=== PATIENT | female | born 1990 | race Caucasian/White ===

== ENCOUNTER → 2020-02-16 16:14 | Outpatient (CLI) | payer OTHER, SELFPAY ==
[2020-02-02 09:54] VITALS: BMI 33.5
--- NOTE | 2020-02-16 16:14 | US_ITS ---
STUDY: ULTRASOUND OF THE FEMALE PELVIS - COMPLETE REASON FOR EXAM: Female, 30 years old. Infertility LMP: 01/19/2020. TECHNIQUE: Transabdominal and Transvaginal TECHNICAL QUALITY: Adequate. COMPARISON: None. FINDINGS: The uterus is anteverted and is in a midline position. The uterus measures 8.6 cm x 4.9 cm x 3.7 cm. There is a Nabothian cyst of the cervix. The endometrium measures 8.3 mm in thickness, and is hyperechoic. There is no demonstrated endometrial mass. There is no demonstrated myometrial mass. I.U.D. - The patient does not have an I.U.D. The right ovary is visualized. The right ovary measures 5.9 cm x 5.5 cm x 5.8 cm. There is a 5.4 cm x 5 cm x 5.5 cm cyst within it. There is no visualized right adnexal mass or complex lesion. There is normal arterial and normal venous vascularity. The left ovary is visualized. The left ovary measures 3.3 cm x 2.2 cm x 1.7 cm. There is no left ovarian cyst or ovarian mass. There is no visualized left adnexal mass or complex lesion. There is normal arterial and normal venous vascularity. There is no fluid in the cul-de-sac. The pre void volume of the bladder was 445 ml. Polycystic ovary disease: No. US/Transvaginal Non- IMPRESSION: 5.4 cm x 5 cm x 5.5 cm right ovarian cyst. Electronically Signed: Kenneth Bar, at 13:16 EDT , Service support ,
--- NOTE | 2020-02-16 16:14 | US_ITS ---
STUDY: ULTRASOUND OF THE FEMALE PELVIS - COMPLETE REASON FOR EXAM: Female, 30 years old. Infertility LMP: 01/19/2020. TECHNIQUE: Transabdominal and Transvaginal TECHNICAL QUALITY: Adequate. COMPARISON: None. FINDINGS: The uterus is anteverted and is in a midline position. The uterus measures 8.6 cm x 4.9 cm x 3.7 cm. There is a Nabothian cyst of the cervix. The endometrium measures 8.3 mm in thickness, and is hyperechoic. There is no demonstrated endometrial mass. There is no demonstrated myometrial mass. I.U.D. - The patient does not have an I.U.D. The right ovary is visualized. The right ovary measures 5.9 cm x 5.5 cm x 5.8 cm. There is a 5.4 cm x 5 cm x 5.5 cm cyst within it. There is no visualized right adnexal mass or complex lesion. There is normal arterial and normal venous vascularity. The left ovary is visualized. The left ovary measures 3.3 cm x 2.2 cm x 1.7 cm. There is no left ovarian cyst or ovarian mass. There is no visualized left adnexal mass or complex lesion. There is normal arterial and normal venous vascularity. There is no fluid in the cul-de-sac. The pre void volume of the bladder was 445 ml. Polycystic ovary disease: No. US/Pelvic (Non ) IMPRESSION: 5.4 cm x 5 cm x 5.5 cm right ovarian cyst. Electronically Signed: Kenneth Bar, at 13:16 EDT , Service support ,
== END ==
PROVIDERS: Referring Provider Obstetrics & Gynecology; Visit Provider Obstetrics & Gynecology
DX: N97.9 Female infertility, unspecified (principal)
CPT/HCPCS: 76830; 76856

== ENCOUNTER → 2020-02-21 09:35 | Outpatient (CLI) | payer OTHER, SELFPAY ==
[2020-02-02 09:54] VITALS: BMI 33.5
[2020-02-21 10:51] LABS: Estradiol 21.4 pg/mL; Follicle Stimulating Hormone 5.7 mIU/mL; Prolactin 16.8 ng/mL; Thyroid Stim Hormone (TSH) 1.27 uIU/mL (0.358-3.74)
[2020-02-25 09:28] LABS: HIV - WCH Non-Reactive (Nonreactive); Rubella IgG 110.9 IU/mL
[2020-02-25 16:08] LABS: Testosterone, % Free 2.67 % (0.50-2.80); Testosterone, Free 1.07 ng/dL (0.10-0.85); Testosterone, Total 40 ng/dL (8-48)
[2020-02-25 16:33] LABS: V-Zoster IgG (Immunity) < 135 index (Immune >165)
[2020-02-26 01:34] LABS: Rapid Plasmin Reagin (RPR) NONREACTIVE (NONREACTIVE)
== END ==
PROVIDERS: Referring Provider Obstetrics & Gynecology; Visit Provider Obstetrics & Gynecology
DX: N97.9 Female infertility, unspecified (principal); Z13.29 Encounter for screening for other suspected endocrine disorder
CPT/HCPCS: 36415; 82627; 82670; 83001; 84146; 84402; 84403; 84443; 86592; 86703; 86762; 86787; 82626

== ENCOUNTER → 2020-03-15 15:34 | Outpatient (CLI) | payer OTHER, SELFPAY ==
[2020-02-02 09:54] VITALS: BMI 33.5
--- NOTE | 2020-03-15 15:35 | US_ITS ---
STUDY: ULTRASOUND OF THE FEMALE PELVIS - COMPLETE REASON FOR EXAM: Female, 30 years old. F/U RTO CYST LMP: 12/20/2019 TECHNIQUE: Transabdominal and Transvaginal TECHNICAL QUALITY: Adequate. COMPARISON: 02/16/2020 FINDINGS: The uterus is anteverted and is in a midline position. The uterus measures 9.4 x 5.1 x 3.0 cm. Normal uterine cervix. The endometrium measures 4 mm in thickness, and is hyperechoic. There is no demonstrated endometrial mass. Anterior myometrial fibroid measuring 7 x 6 x 5 mm. I.U.D. - The patient does not have an I.U.D. The right ovary is visualized. The right ovary measures 7.6 x 6.3 x 4.9 cm. A stable simple right ovary cyst is present measuring 6.2 x 4.3 x 5.9 cm. An adjacent complex septated cyst is now visible measuring 3.0 x 2.6 x 2.2 cm. There is no visualized right adnexal mass or complex lesion. There is normal arterial and normal venous vascularity. The left ovary is visualized. The left ovary measures 4.2 x 2.8 x 1.7 cm. There is no left ovarian cyst or ovarian mass. There is no visualized left adnexal mass or complex lesion. There is normal arterial and normal venous vascularity. There is no fluid in the cul-de-sac. The pre void volume of the bladder was 538.62 ml. Polycystic ovary disease: No. US/Pelvic (Non ) IMPRESSION: A stable simple right ovary cyst is present measuring 6.2 x 4.3 x 5.9 cm. An adjacent complex septated right ovary cyst is now visible measuring 3.0 x 2.6 x 2.2 cm. Anterior myometrial fibroid measuring 7 x 6 x 5 mm. Electronically Signed: Travis De Leon MD at 20:59 EDT Tel , Service support ,
--- NOTE | 2020-03-15 15:35 | US_ITS ---
STUDY: ULTRASOUND OF THE FEMALE PELVIS - COMPLETE REASON FOR EXAM: Female, 30 years old. F/U RTO CYST LMP: 12/20/2019 TECHNIQUE: Transabdominal and Transvaginal TECHNICAL QUALITY: Adequate. COMPARISON: 02/16/2020 FINDINGS: The uterus is anteverted and is in a midline position. The uterus measures 9.4 x 5.1 x 3.0 cm. Normal uterine cervix. The endometrium measures 4 mm in thickness, and is hyperechoic. There is no demonstrated endometrial mass. Anterior myometrial fibroid measuring 7 x 6 x 5 mm. I.U.D. - The patient does not have an I.U.D. The right ovary is visualized. The right ovary measures 7.6 x 6.3 x 4.9 cm. A stable simple right ovary cyst is present measuring 6.2 x 4.3 x 5.9 cm. An adjacent complex septated cyst is now visible measuring 3.0 x 2.6 x 2.2 cm. There is no visualized right adnexal mass or complex lesion. There is normal arterial and normal venous vascularity. The left ovary is visualized. The left ovary measures 4.2 x 2.8 x 1.7 cm. There is no left ovarian cyst or ovarian mass. There is no visualized left adnexal mass or complex lesion. There is normal arterial and normal venous vascularity. There is no fluid in the cul-de-sac. The pre void volume of the bladder was 538.62 ml. Polycystic ovary disease: No. US/Transvaginal Non- IMPRESSION: A stable simple right ovary cyst is present measuring 6.2 x 4.3 x 5.9 cm. An adjacent complex septated right ovary cyst is now visible measuring 3.0 x 2.6 x 2.2 cm. Anterior myometrial fibroid measuring 7 x 6 x 5 mm. Electronically Signed: Travis De Leon MD at 20:59 EDT Tel , Service support ,
== END ==
PROVIDERS: Referring Provider Obstetrics & Gynecology; Visit Provider Obstetrics & Gynecology
DX: N83.209 Unspecified ovarian cyst, unspecified side (principal)
CPT/HCPCS: 76830; 76856

== ENCOUNTER → 2020-03-17 13:02 | Outpatient (CLI) | payer OTHER, SELFPAY ==
[2020-02-02 09:54] VITALS: BMI 33.5
[2020-03-17 14:13] LABS: NATERA MAILED SPECIMEN
== END ==
PROVIDERS: Referring Provider Obstetrics & Gynecology; Visit Provider Obstetrics & Gynecology
DX: Z86.010 Personal history of colon polyps (principal)
CPT/HCPCS: 36415

== ENCOUNTER 2020-04-13 05:59 | Day surgery (SDC) | payer OTHER, SELFPAY ==
[2020-03-17 13:51] VITALS: BMI 33.2
[2020-04-12 15:00] LABS: Hematocrit 39.4 % (37-47); Hemoglobin 13.7 g/dL (12.0-15.0); Mean Corp Hgb Conc 34.8 g/dL (32-36); Mean Corpuscular Volume 83.5 fL (81-99); Platelet Count 360 K/mm3 (150-450); RBC Distribution Width SD 36.5 fl (35.1-43.9); Red Blood Count 4.72 M/mm3 (4.2-5.4); White Blood Count 9.5 K/mm3 (4.4-11.0)
--- NOTE | 2020-04-13 | OV_PTH ---
PATIENT: ADELIA REGALADO LOC: [facility] [place] U#:[id number] AGE/SX: 30/F ROOM: RE04/13/[address]: Dr. Riya Stratton MD : 1990 BED: DIS: 04/13/2020 SPEC #: [id number] RECD: 04/13/20 12:02 STATUS: SHERRY DARRION #: [id number] ANNIE: 04/13/20 00:[address]: Riya Stratton DEPT: SURGICAL PATHOLOGY RECD BY: Anish Cornejo ENTERED: 04/13/20 12:02 SP TYPE: OVARY OTHR DR: No Primary Care Phys Tissues: OVARIAN CYST Procedures: Surgery Specimen Level IV HEADER OPERATION: Laparoscopic ovarian cystectomy, chromotubation PRE-OP DIAGNOSIS: Right ovary cyst TISSUE SUBMITTED: Right ovarian cyst wall MICROSCOPIC DIAGNOSIS Right ovarian cyst wall, cystectomy: Consistent with simple serous cystadenofibroma. SJ:cyndi 04/14/20 MICROSCOPIC DESCRIPTION Slides are reviewed. GROSS DESCRIPTION Received in fixative is one container labeled with the patient's name and designated right ovarian cyst wall. The specimen consists of a glistening fragment of pink-white soft tissue measuring 5 x 1.5 x 0.5 cm. The specimen is sectioned and totally submitted in two cassettes. / AM:cyndi 04/13/20 TC:1 CPT: 87647
[2020-04-13 06:22] VITALS: BP 135/85; PULSE 103; RESP 16; TEMP 37.5; O2SAT 95; BMI 32.9
[2020-04-13 06:22] LABS: Internal QC Validated? YES +Cl - CLEAR BKGD; Pregnancy, Urine Negative Negative
[2020-04-13] MEDS: Lactated Ringers 1,000 ML 100 ML IV ×2 (06:27→09:08)
--- NOTE | 2020-04-13 07:21 | HP.PCM_ITS ---
- Problem List (1) Ovarian cyst Status: Acute History and Physical Date of Admission: 04/13/20 Intake Vital Signs 03/17/20 Height 5 ft 4 in 03/17/20 Weight: 193 lb 8 oz 03/17/20 BP 144/84 H Intake Visit Reasons: infertility work up Template Storage Clerk Required: No Is patient in pain?: No Allergies No Known Allergies Allergy (Verified 03/17/20 13:52) Medications NK 02/02/20 [History Confirmed 03/17/20] Post menopausal: No Patient : No : No PFSH Medical History History of colon polyps (Resolved) Surgical History (Updated 02/02/20 @ 09:56 by Diya Aponte) S/P colonoscopy with polypectomy (Acute) Family History Aunt Colon cancer 4 aunts and couple cousins Social History (Updated 03/17/20 @ 14:[address] Riya Stratton MD) Smoking Status: Never smoker alcohol intake: never substance use type: does not use caffeine: No what type of physical activity do you participate in: none seatbelt use: always do you feel safe at home: Yes additional social history: [employer]g-Biaihcxjdfd/EMT Patient is stay at home mom HPI infertility work up: Details: ADELIA REGALADO is a 30 year old who presents for results follow-up. She reports continues to have regular cycles. Did not ovulate the first month after initial exam, but had positive OPKs the following month. Ovarian cyst identified on ultrasound. Patient denies significant pain and pelvic pressure. Does report one instance a couple of months ago in which she had severe pain on her right side that was so severe that she almost went to the ER. Her has not had a semenalysis - would be more agreeable if could have done at home. Pregancy History 1 Elective abortions Hx Para 1 Spontaneous abortions Hx # Term Pregnancies Ectopic pregnancies Hx # Pregnancies Multiple births # of living children Past Pregnancies Del. Date Name GA/Weeks Outcome Route Bth Weight Gen Labor Lgth Anesthesia Del Locatn Provider FOB 09/29/12 Maribell 40 live - full term 7lbs 8oz Female epidural [facility] Dr. Florencio Grace Delivery Date: 09/29/12 No issues during , mom's HR kept dropping after delivery and blood pressure was elevated Diya Aponte Const Constitutional: Denies chills, fatigue or fever(s) : Denies blood in urine, pelvic pain, urinary urgency, vaginal discharge, vaginal dryness, vaginal odor or vaginal itching Exam Const General: cooperative, healthy appearing, comfortable, well developed, well groomed Neck Neck: normal visual inspection, full ROM Resp Effort & Inspection: normal respiratory effort, able to speak in complete sentences, symmetric chest movement Cardio Rate: regular rate Skin General: no rashes or lesions noted, elasticity normal, turgor normal Lesions: no lesions Rashes: no rashes Neuro General: alert, awake, oriented x3 Cranial Nerves: CN's II-XI intact bilaterally, PERRL, EOM intact bilaterally Cognition: normal cognition Speech: speech normal Gait: normal gait Extrem General: normal to inspection, full ROM, no pedal edema Psych Appearance: grossly normal Mental Status: mental status grossly normal Mood: congruent mood Affect: normal affect Speech and Movement: speech and movement normal Attitude: cooperative Thought Process: normal Thought Content: normal Assessment & Plan 1. Cyst of right ovary N83.201 Plan Ultrasound 03/15 shows: The uterus is anteverted and is in a midline position. The uterus measures 9.4 x 5.1 x 3.0 cm. Normal uterine cervix. The endometrium measures 4 mm in thickness, and is hyperechoic. There is no demonstrated endometrial mass. Anterior myometrial fibroid measuring 7 x 6 x 5 mm. I.U.D. - The patient does not have an I.U.D. The right ovary is visualized. The right ovary measures 7.6 x 6.3 x 4.9 cm. A stable simple right ovary cyst is present measuring 6.2 x 4.3 x 5.9 cm. An adjacent complex septated cyst is now visible measuring 3.0 x 2.6 x 2.2 cm. There is no visualized right adnexal mass or complex lesion. There is normal arterial and normal venous vascularity. The left ovary is visualized. The left ovary measures 4.2 x 2.8 x 1.7 cm. There is no left ovarian cyst or ovarian mass. There is no visualized left adnexal mass or complex lesion. There is normal arterial and normal venous vascularity. Right ovarian cyst also present on imaging 1 month prior to this imaging, but has become slightly larger on most recent scan. Discussed that cyst is simple, but that cysts >5cm are at an increased risk of torsion. Recommend patient undergo ovarian cystectomy. The nature of the procedure was discussed with the patient. Risks, benefits, indications, and alternatives to the procedure were discussed with the patient including bleeding, infection, and visceral or vascular injury. Agreeable to blood products if medically necessary. Discussed possibility of infection inside abdomen or at incision sites which could require outpatient or inpatient antibiotics. Discussed the possibility of injury to uterus, tubes, ovaries, bowel, and bladder. Aware that this could require intra-op consult to general surgery or urology. Also aware of the possibility of prolonged hospitalization or reoperation. Discussed possibility of need to convert to open to procedure. Discussed the possibility of having to remove her ovary at the time of the procedure if it were noted to be severely damaged and the effects that this could have on future fertility. Also discussed the possibility of not being able to remove the entire cyst wall. Recommend performing chromopertubation after cystectomy to ensure that tubes are patent after having surgery on adnexa. All questions were answered. Patient voices understanding and agrees to proceed. 2. 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 Recommended waiting 1 month after vaccination to conceive has not yet had semenalysis - agreeable to home semenalysis Information provided regarding ovulation induction methods. Discussed would likely use letrozole as testosterone is slightly elevated. Will discuss ovul ation induction methods at post-op visit. UPDATE- I have seen the patient and performed any clinically relevant updates to the history and physical exam. Riya Stratton MD
--- NOTE | 2020-04-13 07:27 | PCM.DC.TUB ---
Discharge Diet: No Restrictions, - - Increase fluid intake for 48 hours. Discharge Activity: Return to Normal Activity, May Drive - when you are no longer taking narcotic pain medications., May Shower, May Take a Tub Bath - in 7 days., - - Ambulate often the next week after surgery. Additional Activity Instructions:: Nothing in the vagina for the next 5 days. Call your doctor if your incision/area has: Continuous Slow Oozing, Sudden Increased Bleeding, Increased Pain/ Swelling, Increased Redness, Foul Smelling Discharge, Swelling at the incision site Call your doctor if you observe: Fever of 101 or Higher Allergies/Adverse Reactions: Allergies No Known Allergies Allergy (Verified 04/13/20 06:09) Medications to take at Discharge Pnv No.95/Ferrous Fum/Folic AC [ Formula Tablet] 1 ea PO DAILY 04/05/20 Ibuprofen [Motrin] 600 mg PO Q6H PRN PRN #30 tab 04/13/20 Oxycodone [Oxyir] 5 mg PO Q6H PRN PRN 7 Days #15 tablet 04/13/20 The following prescriptions were given: Ibuprofen [Motrin] 600 mg PO Q6H PRN PRN #30 tab PRN Reason: Pain Transmission Status: Pending to [facility] Oxycodone [Oxyir] 5 mg PO Q6H PRN PRN 7 Days #15 tablet PRN Reason: Pain Score 6-10/10 Transmission Status: Sent to [facility] Primary Care Physician: Care Physician,No Primary [Primary Care Provider] - Test Results: Test results from this visit will be discussed in further detail at your follow-up appointment, if applicable.
--- NOTE | 2020-04-13 07:28 | OP.PCM_ITS ---
Problem List (1) Ovarian cyst Status: Acute Report of Operation Date of Procedure: 04/13/20 Pre-Operative Diagnosis: Suspected ovarian cyst Post-Operative Diagnosis: Right ovarian cyst Surgery/Procedure Performed:: Laparoscopic right ovarian cystectomy, chromopertubation Description of Surgical Findings:: Large right ovarian cyst. Normal appearing uterus, tubes, and left ovary. Bilateral spill on chromopertubation. organisation and methods analyst: Chastity Villafuerte Type of Anesthesia:: General Special Medications: None Specimen's removed: Right ovarian cyst wall Estimated Blood Loss (mL): 20 ml Fluids Replaced: 1000 ml Description of Procedure: The patient was taken to the operating room where general anesthesia was obtained without difficulty. She was prepped and draped in the dorsal lithotomy position with yellofin stirrups. A weighted speculum was placed in the posterior aspect of the vagina and the anterior lip of the cervix was grasped with a single-tooth tenaculum. The cervix was dilated to accommodate a Zumi uterine manipulator. All other instruments were removed from the vagina. Gloves were changed and attention was directed to the abdominal cavity. The umbilicus was instilled with 10cc of 0.25% marcaine. Two towel clamps were placed lateral to the umbilicus and a 5mm incision was made at the base of the umbilicus. The veress needle was inserted and an opening pressure of 3 was noted. The abdomen was insufflated. A 5mm port was placed under direct visualization. Initial inspection revealed no evidence of trauma. No adhesions were noted. 5mm accessory ports were then placed in the right and left lower quadrants. The pelvis was inspected and a large right ovarian cyst was noted. The ovarian stroma was incised using monopolar scissors and spill was noted from the cyst. The cyst was drained using the suction. The cyst wall was then dissected from the underlying ovarian stroma using a combination of blunt and sharp dissection. The cyst wall was removed through the 5mm accessory port. The cyst bed was inspected and monopolar energy was used to obtain hemostasis. Chromopertubation was performed using a 30cc syringe to instill dilute methylene blue through the Zumi manipulator and bilateral spill was noted. Kyrie was applied to the cyst bed and hemostasis was noted. The procedure was deemed complete. All instruments were removed from the abdominal cavity. Port sites were closed using 3-0 monocryl in a interrupted fashion and sterile dressings were applied. The uterine manipulator was removed. The patient was awakened from anesthesia and taken to the recovery room in stable condition. - Complications None - Admit VTE Documentation VTE Present on Admission: No VTE Mechan Device Prophylaxis: SCD's VTE Pharm Prophylaxis ordered?: No Multi Select Codes - Urinary/Genital Urinary/Genital CPT Codes: 88987 Chromotubation, Other Procedure See Report - [id number] - laparoscopic ovarian cystectomy
[2020-04-13] MEDS: Bupivacaine 0.25% 30 ML Vial (08:20)
[2020-04-13 08:36] VITALS: BP 116/72; BP 135/85; PULSE 86; RESP 16; TEMP 36.6; O2SAT 100
[2020-04-13 08:45] VITALS: BP 120/75; BP 135/85; PULSE 74; RESP 16; O2SAT 100
[2020-04-13 09:00] VITALS: BP 115/76; BP 135/85; PULSE 79; RESP 16; TEMP 36.7; O2SAT 99
[2020-04-13 09:28] VITALS: BP 135/85
== END 2020-04-13 09:52 | disposition home or self-care (01) ==
LOC: SDC 06:00 → AC 06:00
PROVIDERS: Anesthesiology; Referring Provider Obstetrics & Gynecology; Visit Provider Obstetrics & Gynecology
PROC: (CPT 49320; principal; 2020-04-13 07:15)
DX: D27.0 Benign neoplasm of right ovary (principal); N97.9 Female infertility, unspecified; Z20.828 Contact with and (suspected) exposure to other viral communicable diseases
CPT/HCPCS: 00840; 58662; 36415; 81025; 85027; 86850; 86900; 86901; 87426; 88305; C9803; J7120; J2405; Q9968

== ENCOUNTER → 2022-09-04 | Outpatient (CLI) | payer OTHER, SELFPAY ==
[2022-09-11 14:08] LABS: HPV APTIMA, High Risk Negative (Negative)
== END | disposition home or self-care (01) ==
LOC: LABSPEC 13:43
PROVIDERS: Referring Provider Obstetrics & Gynecology; Visit Provider Obstetrics & Gynecology
DX: Z12.4 Encounter for screening for malignant neoplasm of cervix (principal)
CPT/HCPCS: 87624; 88175; G0145

== ENCOUNTER → 2022-09-14 | Outpatient (CLI) | payer OTHER, SELFPAY ==
--- NOTE | 2022-09-14 13:48 | US_ITS ---
STUDY: ULTRASOUND OF THE FEMALE PELVIS - COMPLETE REASON FOR EXAM: Female, 32 years old. Pelvic pain and infertility, aub LMP: August 03, 2022. TECHNIQUE: Transabdominal and Transvaginal TECHNICAL QUALITY: Adequate. COMPARISON: Comparison is made with prior study March 15, 2020. FINDINGS: The uterus is anteverted and is in a midline position. The uterus measures 9.2 cm x 5.5 cm x 4 cm. There is a Nabothian cyst of the cervix. The endometrium measures 10 mm in thickness, and is hyperechoic. There is no demonstrated endometrial mass. There is no demonstrated myometrial mass. I.U.D. - The patient does not have an I.U.D. The right ovary is visualized. The right ovary measures 3.3 cm x 1.7 cm x 2.7 cm. Scattered tiny follicles are seen in the periphery of the right ovary. There is no visualized right adnexal mass or complex lesion. There is normal arterial and normal venous vascularity. The left ovary is visualized. The left ovary measures 3.4 cm x 3.2 cm x 2.1 cm. Tiny subcortical follicles are seen. There is no visualized left adnexal mass or complex lesion. There is normal arterial and normal venous vascularity. There is no fluid in the cul-de-sac. The pre void volume of the bladder was 465 ml. US/Pelvic (Non ) IMPRESSION: Findings suggestive of polycystic ovary disease. Electronically Signed: Kenneth Bar MD at 15:36 EDT ,
[2022-09-14 14:09] LABS: Vitamin D,25 Hydroxy 26.2 ng/mL
[2022-09-14 14:36] LABS: Cholesterol 172 mg/dL (200); Estradiol 59.9 pg/mL; Follicle Stimulating Hormone 2.8 mIU/mL; Glucose 90 mg/dL (74-106); High Density Lipoprotein 39 mg/dL; Luteinizing Hormone 5.7 mIU/mL; Thyroid Stim Hormone (TSH) 1.31 uIU/mL (0.358-3.74); Triglycerides 315 mg/dL; Very Low Density Lipoprotein 63 mg/dL (5-40)
== END | disposition home or self-care (01) ==
PROVIDERS: Referring Provider Obstetrics & Gynecology; Visit Provider Obstetrics & Gynecology
DX: R10.2 Pelvic and perineal pain (principal); N93.9 Abnormal uterine and vaginal bleeding, unspecified; Z13.220 Encounter for screening for lipoid disorders; Z13.21 Encounter for screening for nutritional disorder
CPT/HCPCS: 36415; 76830; 76856; 80061; 82306; 82670; 82947; 83001; 83002; 84146; 84443